=== PATIENT | female | born 1950 | race Caucasian/White ===

== ENCOUNTER → 2016-09-13 | Day surgery (SDC) | payer MEDICARE ==
[2016-09-12 09:09] VITALS: BMI 30.6
[~2016-09-13] MED LIST: CIPROFLOXACIN-DEXAMETH 0.3-0.1% DROPS 7.5 ML BTL RIGHT EAR ONE; DEXAMETHASONE SOD PHOSPHATE 10 MG/ML 1 ML VIAL IV ONE; LACTATED RINGERS 1,000 ML IV SCH; LIDOCAINE 1% 20 ML VIAL (10MG/ML) FOR IV START INTRADERMA PRN; ONDANSETRON 4 MG/2 ML VIAL IVP ONE; PROPOFOL 10 MG/ML 20 ML VIAL IV ONE; SCOPOLAMINE 1.5MG/72HR PATCH TRANSDERM ONE; fentaNYL (PF) 50 MCG/ML 2 ML AMP IV PRN; fentaNYL (PF) 50 MCG/ML 2 ML AMP ONE
--- NOTE | 2016-09-13 06:13 | HP ---
CHIEF COMPLAINT: Fluid in the right ear. HISTORY OF PRESENT ILLNESS: This patient is a 65-year-old female who was recently seen in my office complaining of having a plugged sensation in her right ear following a severe ear infection. The patient stated that at the time the ear had felt blocked and she was placed on a course of oral antibiotics by her family physician. However, this did not relieve her symptoms and at the time that I saw her in my office clinical examination of the right ear revealed chronic right serous otitis media so-called glue ear. The patient was placed on a 10-day course of Decadron p.o. and was seen back in the office approximately 2 weeks later. At that time, the patient noted that there was no improvement in her symptoms and repeat examination revealed the patient still had chronic right serous otitis media so-called glue ear. At that time, it was recommended that the patient undergo a right myringotomy with insertion of ventilation tube under either IV sedation or general anesthesia, depending upon the anesthesia department's preference. Past medical history reveals that the patient has allergies to ADVICOR. She is a smoker, but is presently trying to quit. The patient was urged to quit smoking for obvious health reasons. Current medications include: 1. Metoprolol. 2. Atorvastatin. 3. One baby aspirin daily. Previous surgeries include cholecystectomy, fem-pop bypass, left arthroscopic knee surgery and colonoscopy. The patient is 1 para, 1 , 0 miscarriage. REVIEW OF SYSTEMS: Cardiovascular is positive for hypertension. Respiratory is negative. Gastrointestinal is negative. Metabolic endocrine is positive for hypercholesterolemia. The remainder of the review of systems is unremarkable. PHYSICAL EXAMINATION: This patient is a 65-year-old female who was alert and cooperative. HEENT EXAMINATION: The patient is normocephalic. Left tympanic membrane is normal. Left middle ear space is free of any fluid or infection. Examination of the right ear reveals right tympanic membrane is dull with evidence of fluid in the right middle ear space. Pupils are equal, round and react to light and accommodation. Extraocular movements are within normal limits. Intranasal examination reveals moderate to severe septal deviation to the left with bilateral compensatory hypertrophy of the inferior turbinates. A moderate amount of clear mucus on the mucous membranes and draining down the posterior pharynx. Examination of the oropharynx, palpation of the neck and cranial nerves 2 through 12 and the remainder of the head and neck exam are within normal limits. CHEST/CARDIOVASCULAR: Both lung cook are clear to percussion and auscultation. The patient is in regular sinus rhythm. S1 and S2 are present without evidence of any murmurs, S3s or S4s. Peripheral pulses are bilaterally symmetrical and within normal limits. ABDOMEN: There is no evidence of any masses, megaly or tenderness. The abdomen is soft. Skin is unremarkable. Musculoskeletal and neurological are within normal limits. PELVIC/RECTAL EXAM: The pelvic/rectal exam is deferred at this time because the patient has this done on a regular basis at her family physician's office. The remainder of the physical exam is unremarkable. IMPRESSION: Chronic right serous otitis media. PLAN: The patient is scheduled to undergo a right myringotomy with insertion of ventilation tube under either IV sedation with MAC or general anesthesia, dependent upon the anesthesia department's preference. ATTENTION RNS IN THE PRESURGICAL AREA: I have not ordered any presurgical prophylactic antibiotics for this patient. If the pharmacy department sends any presurgical prophylactic antibiotics to the presurgical area for this patient that order should be canceled, the medication returned to the pharmacy department and make sure that the patient's account is credited appropriately. I have discussed the risks, benefits and alternative therapies for the above- mentioned procedure and for both sedation/analgesia as well as necessary blood product administration, if indicated, as they pertain to this patient. The patient has indicated his or her understanding and acceptance of the risks and procedures discussed. OSKAR
[2016-09-13 11:02] VITALS: RESP 20; TEMP 97.2
[2016-09-13 11:33] VITALS: BP 166/84; PULSE 92
--- NOTE | 2016-09-15 14:44 | OP ---
DATE OF SURGERY: 09/13/16 SURGEON: Jose Holland M.D. PREOP DIAGNOSIS: Chronic right serous otitis media. POSTOP DIAGNOSIS: Chronic right serous otitis media. ANESTHESIA: IV sedation. OPERATION: Right myringotomy with insertion of a Billings plastic ventilation tube. OPERATING SURGEON: Dr. Holland COMPLICATIONS: None. OPERATIVE PROCEDURE: The patient was placed on the operating table in the supine position and after uneventful, IV sedation, satisfactory sedation was obtained. Next, the patients right ear was draped in the usual and customary fashion. Following this, using the Zeiss operating microscope and a # 3 Aural speculum, the right external auditory canal was cleansed of all wax and debris. Next, after removing an old extruded ventilation tube, the myringotomy knife was used to make an incision in the anterior inferior quadrant of the right tympanic membrane. Right middle ear space was suctioned free of all fluid and a Billings fluoroplastic ventilation tube was inserted through the previously made myringotomy incision without any difficulty. At this point, the procedure was terminated. There were no intraoperative complications. The patient tolerated the procedure well and was returned to the recovery room in satisfactory condition. OSKAR
== END ==
LOC: OR 09:24
PROVIDERS: ATTEND Otolaryngology
DX: H65.21 Chronic serous otitis media, right ear (principal); F17.200 Nicotine dependence, unspecified, uncomplicated; Z84.89 Family history of other specified conditions; E78.5 Hyperlipidemia, unspecified; I10 Essential (primary) hypertension; I25.2 Old myocardial infarction; I73.9 Peripheral vascular disease, unspecified; Z95.5 Presence of coronary angioplasty implant and graft; Z87.891 Personal history of nicotine dependence; J44.9 Chronic obstructive pulmonary disease, unspecified; Z79.02 Long term (current) use of antithrombotics/antiplatelets; Z79.82 Long term (current) use of aspirin; Z79.891 Long term (current) use of opiate analgesic; E78.00 Pure hypercholesterolemia, unspecified; Z88.8 Allergy status to other drugs, medicaments and biological substances
CPT/HCPCS: 69436; J1100; J2405; J3010; J2704